=== PATIENT | male | born 1975 | race Caucasian/White ===

== ENCOUNTER 2017-06-16 19:10 | Emergency (ER) | payer SELFPAY ==
--- NOTE | 2017-06-16 19:19 | ED.ADGEN ---
Past History Past Medical History: Cancer, Gallstones Past Surgical History: Cholecystectomy, Other Adult General Chief Complaint Chief Complaint " I still got really bad abdomen pain... I got admitted at [facility] saturday for gall bladder.. and the did surgery... but they discharged me today... I told I was too sick to go...now I am really hurting... and I also go renal cancer... and Rt. right kidney is to get removed too..." " I am nauseated .. my entire abd. hurts..." HPI HPI Patient is a 42 year old male who presents with above hx and complaints of generalized abdomen pain after cholecystectomy. Pt. discharged from [facility] earlier today. Pt. does not remember his physician name. Records show a ED physician was Dr. Schmitz, and Primary Dr. Margarita Nunes and Dr. Garland Esposito- oncology, and Surgeon Dr. Margarita Willingham. Pt. had cholecystectomy for biliary colic and gall bladder polyp. Pt. somewhat poor historian reference is admission and surgery at [facility]. Pt. complaints of unable to take pain meds because of nausea and vomiting. Pt. rates his pain as 10/10. Pt. brother Paul Andujar present, can call if any concerns. [phone]. Review of Systems Review of Systems Constitutional: Denies fever or chills [] Eyes: Denies change in visual acuity, redness, or eye pain [] HENT: Denies nasal congestion or sore throat [] Respiratory: Denies cough or shortness of breath [] Cardiovascular: No additional information not addressed in HPI [] GI: Denies abdominal pain, nausea, vomiting, bloody stools or diarrhea [] : Denies dysuria or hematuria [] Musculoskeletal: Denies back pain or joint pain [] Integument: Denies rash or skin lesions [] Neurologic: Denies headache, focal weakness or sensory changes [] Endocrine: Denies polyuria or polydipsia [] All other systems were reviewed and found to be within normal limits, except as documented in this note. Family History Family History Non-contributory Current Medications Current Medications Current Medications Medications (Trade) Dose Ordered Sig/Mignon Start Time Stop Time Status Last Admin Dose Admin Ceftriaxone Sodium 1 gm/ Sodium Chloride 50 ml @ 100 mls/hr 1X ONCE 06/16/17 22:00 06/16/17 22:29 DC 06/16/17 22:13 100 MLS/HR Famotidine (Pepcid Vial) 20 mg 1X ONCE 06/16/17 19:30 06/16/17 19:37 DC 06/16/17 19:30 20 MG Info (Do NOT chart on this entry -- for MONITORING) 1 each PRN DAILY PRN 06/16/17 20:00 06/17/17 02:00 DC Iohexol (Omnipaque 240 Mg/ml) 30 ml 1X ONCE 06/16/17 19:45 06/16/17 19:51 DC 06/16/17 21:56 30 ML Iohexol (Omnipaque 300 Mg/ml) 75 ml 1X ONCE 06/16/17 19:45 06/16/17 19:51 DC 06/16/17 21:56 75 ML Lactated Ringer's 1,000 ml @ 1,000 mls/hr Q1H 06/16/17 19:21 06/16/17 20:20 DC 06/16/17 19:21 1,000 MLS/HR Metronidazole 100 ml @ 100 mls/hr 1X ONCE 06/16/17 22:00 06/16/17 22:59 DC 06/16/17 22:17 100 MLS/HR Morphine Sulfate (Morphine 10mg Syringe) 10 mg 1X ONCE 06/17/17 00:00 06/17/17 00:04 DC 06/17/17 00:00 10 MG Ondansetron HCl (Zofran) 8 mg 1X ONCE 06/16/17 19:30 06/16/17 19:37 DC 06/16/17 19:30 8 MG Sodium Chloride 1,000 ml @ 1,000 mls/hr 1X ONCE 06/16/17 20:45 06/16/17 21:44 DC 06/16/17 20:45 1,000 MLS/HR Allergies Allergies Allergies Coded Allergies Type Severity Reaction Last Updated Verified No Known Drug Allergies 06/16/17 No Physical Exam Physical Exam Constitutional: Moderately acute distress, non-toxic appearance. [] HENT: Normocephalic, atraumatic, bilateral external ears normal, oropharynx moist, no oral exudates, nose normal. []Scalp lesions. Eyes: PERRLA, EOMI, conjunctiva normal, no discharge. [] Neck: Normal range of motion, no tenderness, supple, no stridor. [] Cardiovascular:Heart rate regular rhythm, no murmur [] Lungs & Thorax: Bilateral breath sounds equal at apexes with scattered wheezes on auscultation []Basilar crackles. Abdomen: Bowel sounds decrease, soft, generalize tenderness, no masses, no pulsatile masses. Distended. Suture lines stable. Skin: Warm, dry, no erythema, no rash. Poor turgor. Back: No tenderness, no CVA tenderness. [] Extremities: No tenderness, no cyanosis, no clubbing, ROM intact, no edema. [] Complaints numbness in lower legs. Neurologic: Alert and oriented X 3, No gross motor function deficits., Complaints of decrease sensory in feet, Psychologic: Affect Anxious, judgement normal, mood depressed. Current Patient Data Vital Signs Vital Signs Date Time Temp Pulse Resp B/P (MAP) Pulse Ox O2 Delivery O2 Flow Rate FiO2 06/17/17 00:00 98 06/16/17 21:14 98.5 71 20 Room Air Lab Results Laboratory Tests Test 06/16/17 19:15 06/16/17 21:50 06/16/17 23:30 White Blood Count 15.6 x10^3/uL (4.0-11.0) H Red Blood Count 5.04 x10^6/uL (4.30-5.70) Hemoglobin 14.5 g/dL (13.0-17.5) Hematocrit 42.9 % (39.0-53.0) Mean Corpuscular Volume 85 fL (79-100) Mean Corpuscular Hemoglobin 29 pg (25-35) Mean Corpuscular Hemoglobin Concent 34 g/dL (31-37) Red Cell Distribution Width 15.5 % (11.5-14.5) H Platelet Count 301 x10^3/uL (140-400) Neutrophils (%) (Auto) 84 % (31-73) H Lymphocytes (%) (Auto) 6 % (24-48) L Monocytes (%) (Auto) 10 % (0-9) H Eosinophils (%) (Auto) 0 % (0-3) Basophils (%) (Auto) 1 % (0-3) Neutrophils # (Auto) 13.0 x10^3uL (1.8-7.7) H Lymphocytes # (Auto) 1.0 x10^3/uL (1.0-4.8) Monocytes # (Auto) 1.5 x10^3/uL (0.0-1.1) H Eosinophils # (Auto) 0.0 x10^3/uL (0.0-0.7) Basophils # (Auto) 0.1 x10^3/uL (0.0-0.2) Segmented Neutrophils % 87 % (35-66) H Lymphocytes % 6 % (24-48) L Monocytes % 7 % (0-10) Platelet Estimate Adequate (ADEQUATE) Polychromasia Slight Ovalocytes Occ Schistocytes Occ Prothrombin Time 11.3 SEC (9.4-11.4) Prothrombin Time INR 1.1 (0.9-1.1) PTT 27 SEC (23-33) Sodium Level 137 mmol/L (136-145) Potassium Level 3.5 mmol/L (3.5-5.1) Chloride Level 99 mmol/L (98-107) Carbon Dioxide Level 29 mmol/L (21-32) Anion Gap 9 (6-14) Blood Urea Nitrogen 8 mg/dL (8-26) Creatinine 0.9 mg/dL (0.7-1.3) Estimated GFR (Cockcroft-Gault) 92.1 Glucose Level 117 mg/dL (70-99) H Lactic Acid Level 2.2 mmol/L (0.4-2.0) H 1.2 mmol/L (0.4-2.0) Calcium Level 9.1 mg/dL (8.5-10.1) Total Bilirubin 4.1 mg/dL (0.2-1.0) H Direct Bilirubin 2.2 mg/dL (0.0-0.2) H Aspartate Amino Transferase (AST) 155 U/L (15-37) H Alanine Aminotransferase (ALT) 220 U/L (16-63) H Alkaline Phosphatase 70 U/L (46-116) Creatine Kinase 140 U/L (39-308) Creatine Kinase MB (Mass) 0.8 ng/mL (0.0-3.6) Creatine Kinase MB Relative Index 0.6 % (0-4) Troponin I Quantitative < 0.017 ng/mL (0-0.055) Total Protein 8.0 g/dL (6.4-8.2) Albumin 3.7 g/dL (3.4-5.0) Lipase 70 U/L (73-393) L Influenza Type A (Rapid) Negative (NEGATIVE) Influenza Type B (Rapid) Negative (NEGATIVE) Urine Collection Type Unknown Urine Color Val Urine Clarity Clear Urine pH 6.0 Urine Specific [place] 1.010 Urine Protein 100 mg/dl (NEG-TRACE) Urine Glucose (UA) Neg mg/dL (NEG) Urine Ketones (Stick) 80 mg/dL (NEG) Urine Blood Small (NEG) Urine Nitrite Neg (NEG) Urine Bilirubin Small (NEG) Urine Urobilinogen Dipstick 0.2 mg/dL (0.2 mg/dL) Urine Leukocyte Esterase Neg (NEG) Urine RBC 3-5 /HPF (0-2) Urine WBC Occ /HPF (0-4) Urine Squamous Epithelial Cells Occ /LPF Urine Bacteria Few /HPF (0-FEW) Urine Mucus Slight /LPF Urine Opiates Screen Pos (NEG) Urine Methadone Screen Neg (NEG) Urine Barbiturates Neg (NEG) Urine Phencyclidine Screen Neg (NEG) Urine Amphetamine/Methamphetamine Neg (NEG) Urine Benzodiazepines Screen Neg (NEG) Urine Cocaine Screen Neg (NEG) Urine Cannabinoids Screen Pos (NEG) Urine Ethyl Alcohol Neg (NEG) EKG EKG My interpretation of EKG shows as sinus 72, with no findings of Acute STEMI with contralateral changes. [] Radiology/Procedures Radiology/Procedures My interpretation of acute abd. show bilateral atelectasis, borderline cardiac silhouette. Increased bowel gas. [] CT findings show mild mesenteric adenitis. Small amount of free fluid. Right renal mass. See formal report when available Course & Med Decision Making Course & Med Decision Making Pertinent Labs and Imaging studies reviewed. (See chart for details) Discussed presentation, testing and tx. plan with Dr. Carranza- registration coordinator for Dr. Willingham. Pt. to return to [facility], admit to Hospitalist with Dr. Willingham consult. Discussed transfer with Dr. Bell in ED, to have pt go directly to floor - Transfer [phone]. [] Final Impression Final Impression 1. History of cholecystectomy for biliary colic and polyp.- 06/14/17 2. Generalized abdomen pain 3. History - 1.7 cm mass- suspect renal carcinoma 4. Scalp lesions 5. COPD 6. Peripheral Neuropathy 7. Cervical neuropathy- C4-5- Hx of old fx. 8. Chronic Back Pain 9. Tobacco Abuse 10. Nausea and Vomiting 11. Mesenteric Adenitis 12. Elevated AST/ALT 13. Leukocytosis 14. Elevated Lactic Acid Problems: Dragon Disclaimer Dragon Disclaimer This electronic medical record was generated, in whole or in part, using a voice recognition dictation system. KHUSHI BOGGS MD Jun 16, 2017 19:19
[2017-06-16] MEDS ORDERED: IV RINGERS SOLUTION,LACTATED 1,000 ML IV SCH (19:21)
[2017-06-16] MEDS ORDERED: MORPHINE SULFATE 10 MG/ML SYRINGE. SQ ONE (19:30)
[2017-06-16] MEDS ORDERED: FAMOTIDINE 20 MG/2 ML VIAL IVP ONE (19:30)
[2017-06-16] MEDS ORDERED: ONDANSETRON PF 4 MG/2 ML VIAL. IV ONE (19:30)
--- NOTE | 2017-06-16 19:39 | EKG ---
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
[2017-06-16] MEDS ORDERED: IOHEXOL 300 MG/ML 75 ML VIAL. IV ONE (19:45)
[2017-06-16] MEDS ORDERED: IOHEXOL 240 MG/ML 50ML VIAL. PO ONE (19:45)
[2017-06-16 19:53] LABS: BASO # 0.1 x10^3/uL (0.0-0.2); BASO % 1 % (0-3); EOS % 0 % (0-3); HEMOGLOBIN 14.5 g/dL (13.0-17.5); LYMPH % 6 % (24-48); MEAN CORPUSCULAR HEMOGLOBIN 29 pg (25-35); MEAN CORPUSCULAR HGB CONC 34 g/dL (31-37); MEAN CORPUSCULAR VOLUME 85 fL (79-100); MONO # 1.5 x10^3/uL (0.0-1.1); NEUT % 84 % (31-73); RED BLOOD COUNT 5.04 x10^6/uL (4.30-5.70)
[2017-06-16 19:54] LABS: HEMATOCRIT 42.9 % (39.0-53.0); WHITE BLOOD COUNT 15.6 x10^3/uL (4.0-11.0)
[2017-06-16 19:55] LABS: MONO % 10 % (0-9); PLATELET COUNT 301 x10^3/uL (140-400); RED CELL DISTRIBUTION WIDTH 15.5 % (11.5-14.5)
[2017-06-16] MEDS ORDERED: CONTRAST GIVEN MC PRN (20:00)
[2017-06-16 20:11] LABS: INFLUENZA A PATIENT NEGATIVE (NEGATIVE); INFLUENZA B PATIENT NEGATIVE (NEGATIVE)
[2017-06-16 20:13] LABS: ALBUMIN 3.7 g/dL (3.4-5.0); CALCIUM 9.1 mg/dL (8.5-10.1); CREATININE 0.9 mg/dL (0.7-1.3); DIRECT BILIRUBIN 2.2 mg/dL (0.0-0.2); GFR 92.1; POTASSIUM 3.5 mmol/L (3.5-5.1); TOTAL BILIRUBIN 4.1 mg/dL (0.2-1.0)
[2017-06-16] MEDS ORDERED: IV NORMAL SALINE 1,000ML 1,000 ML IV ONE (20:45)
[2017-06-16] MEDS ORDERED: IV NORMAL SALINE 50ML 50 ML ONE (22:01)
[2017-06-16] MEDS ORDERED: cefTRIAXone SODIUM 1 GM VIAL IV ONE (22:01)
[2017-06-16 22:02] LABS: % LYMPHS 6 % (24-48); % MONOS 7 % (0-10); % SEGS 87 % (35-66); OVALOCYTES OCC; PLT ESTIMATE ADEQUATE (ADEQUATE); POLYCHROMASIA SLIGHT; SCHISTOCYTES OCC
--- NOTE | 2017-06-16 22:24 | RAD ---
CT ABD PELV W/ORAL IV CONTRAST Indication: [id number] Omni 300 75cc: Post-op cholecystectomy 06/14/17, severe abdomen pain with nausea today. Patient states a CT A/P was done last week at [facility], he was told he had a cancerous lesion on his right kidney. No priors here. . Comparison: No comparison is available. Contrast: Intravenous and oral contrast. Exposure: One or more of the following individualized dose reduction techniques were utilized for this examination: 1. Automated exposure control 2. Adjustment of the mA and/or kV according to patient size 3. Use of iterative reconstruction technique. Findings: Mild atelectasis or infiltrate in both lung bases. Small pleural effusions. No evidence of pneumoperitoneum. Liver and spleen unremarkable. Pancreas unremarkable. No adrenal mass. There is a heterogeneous mass in the anterior right kidney measuring about 15 mm in diameter. Kidneys demonstrate symmetric function. Gallbladder surgically absent. No aortic aneurysm. There are several mildly enlarged mesenteric lymph nodes, measuring up to 14 mm. Smaller retroperitoneal lymph nodes are seen. No evidence of bowel obstruction. No evidence of acute colitis. A structure which may represent a nondistended appendix is seen. There is mild free fluid in the pelvis and in the right lower quadrant. There is also mild perihepatic ascites. Urinary bladder is distended. IMPRESSION: 1. Mass within the right kidney, measures about 15 mm diameter. This could be benign or malignant. If not already worked up, this can be done with outpatient MRI or multiphase CT scan. 2. Mildly enlarged mesenteric lymph nodes, uncertain significance but could be reactive. 3. Mild ascites in the right lower quadrant, pelvis and right upper quadrant of uncertain etiology. 4. Mild infiltrate or atelectasis in both lung bases. Electronically signed by: Mitchell Xie MD (06/16/2017 10:21 PM) [facility]
[2017-06-16 23:19] LABS: BARBITURATES NEG (NEG); BENZODIAZEPINES NEG (NEG); CANNABINOIDS POS (NEG); COCAINE NEG (NEG); METHADONE NEG (NEG); OPIATES POS (NEG); PHENCYCLIDINE NEG (NEG)
[2017-06-16 23:21] LABS: BACTERIA,URINE FEW /HPF (0-FEW); BILIRUBIN,URINE SMALL (NEG); CLARITY,URINE CLEAR; COLOR,URINE AMBER; GLUCOSE,URINE NEG (NEG); NITRITE,URINE NEG (NEG); SQUAMOUS EPITHELIAL CELL,UR OCC /LPF; UROBILINOGEN,URINE 0.2 mg/dL (0.2 mg/dL); WBC,URINE OCC /HPF (0-4)
[2017-06-16 23:22] LABS: AMPHETAMINE/METHAMPHETAMINE NEG (NEG)
[2017-06-16] MEDS ORDERED: MORPHINE SULFATE 10 MG/ML SYRINGE. ONE (23:55)
[2017-06-17] MEDS ORDERED: MORPHINE SULFATE 10 MG/ML SYRINGE. SQ ONE
[2017-06-17 01:15] VITALS: BP 173/91
--- NOTE | 2017-06-17 07:59 | RAD ---
Acute abdominal series including frontal chest radiograph and 2 views of the abdomen 06/16/2017 Indication: Postoperative. Right-sided abdominal pain. Comparison study: None Discussion: Low lung volumes are noted which augments the cardiomediastinal silhouette and pulmonary vasculature. There is bibasilar atelectasis. There is a probable small left pleural effusion. No pneumothorax is seen. Heart size is normal. Bony thorax is unremarkable. No gross pneumoperitoneum is identified. Minimal gaseous distention of small and large bowel is identified. The overall bowel gas pattern is felt to be nonobstructive. Adynamic ileus could have this appearance. Surgical clips noted in the right upper quadrant. No acute osseous changes are identified. Impression: 1. Mild distention of large and small bowel possibly representing adynamic ileus. Overall bowel gas is nonobstructive 2. Low lung volumes with bibasilar atelectasis and possible trace left pleural effusion
== END 2017-06-17 02:00 | disposition home or self-care (01) ==
LOC: ER 19:10
DX: R10.84 Generalized abdominal pain (principal); L98.8 Other specified disorders of the skin and subcutaneous tissue; J44.9 Chronic obstructive pulmonary disease, unspecified; G62.9 Polyneuropathy, unspecified; G54.2 Cervical root disorders, not elsewhere classified; G89.29 Other chronic pain; I88.0 Nonspecific mesenteric lymphadenitis; R74.0 Nonspecific elevation of levels of transaminase and lactic acid dehydrogenase [LDH]; R74.8 Abnormal levels of other serum enzymes; D72.829 Elevated white blood cell count, unspecified; Z72.0 Tobacco use; Z90.49 Acquired absence of other specified parts of digestive tract
CPT/HCPCS: 36415; 74022; 74177; 80048; 80076; 80307; 81001; 82553; 83605; 83690; 84484; 85007; 85025; 85610; 85730; 87040; 87804; 93005; 96361; 96365; 96366; 96368; 96372; 96375; 99285; J0696; J2270; J2405; J3490; J7120; Q9966; Q9967; S0028; G0479; J7030

== ENCOUNTER 2019-06-01 16:33 | Emergency (ER) | payer SELFPAY ==
[~2019-06-01] VITALS: Ht 170.2 cm; Wt 86.7 kg
--- NOTE | 2019-06-01 16:59 | PHYS DOC ---
Past History Past Medical History: Cancer, Gallstones Past Surgical History: Cholecystectomy, Other Alcohol Use: Occasionally Drug Use: None Adult General Chief Complaint Chief Complaint: MULTIPLE COMPLAINTS HPI HPI 44-year-old male presents with fatigue, dizziness, nausea for the last 4 days. Patient also had diffuse body cramping. He has not measured a fever. He has had some chills. He's had a few episodes of vomiting and diarrhea. This history is significant for renal cancer with no treatment and chronic blood in his stool for the last 2 years. He comes in today because he felt like his vision was more narrow and the fatigue is worse than yesterday. He decided he should get checked out. He has had decreased appetite. He has not had much to eat or drink. He states he may have blood in his urine. He has had decreased urination. Review of Systems Review of Systems Constitutional: Body aches. Chills[] Eyes: Denies change in visual acuity, redness, or eye pain [] HENT: Denies nasal congestion or sore throat [] Respiratory: Denies cough or shortness of breath [] Cardiovascular: No additional information not addressed in HPI [] GI: nausea, vomiting, blood in stool. Denies abdominal pain. [] : hematuria [] Musculoskeletal: Denies back pain or joint pain [] Integument: Denies rash or skin lesions [] Neurologic: Denies headache, focal weakness or sensory changes [] Endocrine: Denies polyuria or polydipsia [] All other systems were reviewed and found to be within normal limits, except as documented in this note. Current Medications Current Medications Current Medications Medications (Trade) Dose Ordered Sig/[facility] Start Time Stop Time Status Last Admin Dose Admin Ondansetron HCl (Zofran) 4 mg 1X ONCE 06/01/19 17:00 06/01/19 17:01 Sodium Chloride 1,000 ml @ 1,000 mls/hr 1X ONCE 06/01/19 17:00 06/01/19 17:59 Allergies Allergies Allergies Coded Allergies Type Severity Reaction Last Updated Verified No Known Drug Allergies 06/16/17 No Physical Exam Physical Exam Constitutional: Well developed, well nourished, no acute distress, non-toxic appearance. [] HENT: Poor dentition. Normocephalic, atraumatic, bilateral external ears normal, oropharynx moist, no oral exudates, nose normal. [] Eyes: PERRLA, EOMI, conjunctiva normal, no discharge. [] Neck: Normal range of motion, no tenderness, supple, no stridor. [] Cardiovascular: Heart rate regular rhythm, no murmur [] Lungs & Thorax: Bilateral breath sounds clear to auscultation [] Abdomen: Bowel sounds normal, soft, no tenderness, no masses, no pulsatile masses. [] Skin: Warm, dry, no erythema, no rash. [] Back: No tenderness, no CVA tenderness. [] Extremities: No tenderness, no cyanosis, no clubbing, ROM intact, no edema. [] Neurologic: Alert and oriented X 3, normal motor function, normal sensory function, no focal deficits noted. [] Psychologic: Affect normal, judgement normal, mood normal. [] Current Patient Data Vital Signs Vital Signs Date Time Temp Pulse Resp B/P (MAP) Pulse Ox O2 Delivery O2 Flow Rate FiO2 06/01/19 16:49 98.0 81 18 166/109 (128) 96 Room Air EKG EKG Sinus rhythm, rate 78, normal axis, no ST elevation or depression.[] Radiology/Procedures Radiology/Procedures [] Impressions: CHEST PA LATERAL History: Weakness, chest pain Comparison: June 16, 2017 Findings: 2 views of the chest are submitted. There is no infiltrate, pneumothorax, or effusion. Pericardial cardiac silhouette is within normal limits in size. Impression: 1. There is no radiographic evidence of acute cardiopulmonary disease. Electronically signed by: Lynn Casarez MD (06/01/2019 5:39 PM) [id number] DICTATED AND SIGNED BY: LYNN CASAREZ MD DATE: 06/01/19 1739 CC: EDILMA WOODWARD DO; PCP,NO ~ Course & Med Decision Making Course & Med Decision Making Pertinent Labs and Imaging studies reviewed. (See chart for details) Patient's labs are unremarkable. His chest x-ray is unremarkable. His EKG is unremarkable. His urinalysis is pending. Thus far, the most likely cause of the patient's symptoms seem to be viral illness. Urinalysis is unremarkable. I have advised supportive care. Stable for discharge at this time. [] Dragon Disclaimer Dragon Disclaimer This electronic medical record was generated, in whole or in part, using a voice recognition dictation system. Departure Departure: Impression: Primary Impression: Viral syndrome Disposition: HOME, SELF-CARE Condition: STABLE Referrals: PCP,NO (PCP) Patient Instructions: Viral Syndrome EDILMA WOODWARD DO Jun 01, 2019 16:58
[2019-06-01] MEDS ORDERED: ONDANSETRON PF 4 MG/2 ML VIAL. IVP ONE (17:00)
[2019-06-01] MEDS ORDERED: IV NORMAL SALINE 1,000ML 1,000 ML IV ONE (17:00)
[2019-06-01 17:19] LABS: BASO % 0 % (0-3); EOS # 0.5 x10^3/uL (0.0-0.7); EOS % 5 % (0-3); HEMATOCRIT 47.5 % (39.0-53.0); HEMOGLOBIN 15.8 g/dL (13.0-17.5); LYMPH # 1.9 x10^3/uL (1.0-4.8); LYMPH % 21 % (24-48); MEAN CORPUSCULAR HEMOGLOBIN 29 pg (25-35); MEAN CORPUSCULAR HGB CONC 33 g/dL (31-37); MEAN CORPUSCULAR VOLUME 87 fL (79-100); MONO # 0.8 x10^3/uL (0.0-1.1); MONO % 9 % (0-9); NEUT # 6.1 x10^3uL (1.8-7.7); NEUT % 65 % (31-73); PLATELET COUNT 398 x10^3/uL (140-400); RED BLOOD COUNT 5.46 x10^6/uL (4.30-5.70); RED CELL DISTRIBUTION WIDTH 14.4 % (11.5-14.5); WHITE BLOOD COUNT 9.4 x10^3/uL (4.0-11.0)
[2019-06-01 17:28] LABS: CALCIUM 8.5 mg/dL (8.5-10.1); CREATININE 0.8 mg/dL (0.7-1.3); GFR 104.5; POTASSIUM 4.1 mmol/L (3.5-5.1)
[2019-06-01 17:31] LABS: ALBUMIN 3.6 g/dL (3.4-5.0); ALBUMIN/GLOBULIN RATIO 1.2 (1.0-1.7); TOTAL BILIRUBIN 0.5 mg/dL (0.2-1.0); TOTAL PROTEIN 6.7 g/dL (6.4-8.2)
[2019-06-01 17:34] LABS: INFLUENZA A PATIENT NEGATIVE (NEGATIVE); INFLUENZA B PATIENT NEGATIVE (NEGATIVE)
--- NOTE | 2019-06-01 17:41 | RAD ---
CHEST PA LATERAL History: Weakness, chest pain Comparison: June 16, 2017 Findings: 2 views of the chest are submitted. There is no infiltrate, pneumothorax, or effusion. Pericardial cardiac silhouette is within normal limits in size. Impression: 1. There is no radiographic evidence of acute cardiopulmonary disease. Electronically signed by: Malik Randall MD (06/01/2019 5:39 PM) [id number]
--- NOTE | 2019-06-01 18:00 | EKG ---
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
[2019-06-01 18:36] LABS: BACTERIA,URINE 0 /HPF (0-FEW); BILIRUBIN,URINE NEG (NEG); CLARITY,URINE CLEAR; COLOR,URINE YELLOW; GLUCOSE,URINE NEG (NEG); NITRITE,URINE NEG (NEG); RBC,URINE 0 /HPF (0-2); SQUAMOUS EPITHELIAL CELL,UR OCC /LPF; UROBILINOGEN,URINE 0.2 mg/dL (0.2 mg/dL); WBC,URINE OCC /HPF (0-4)
[2019-06-01 18:51] VITALS: BP 161/67
== END 2019-06-01 18:50 | disposition home or self-care (01) ==
LOC: ER 16:33
DX: B34.9 Viral infection, unspecified (principal); R42 Dizziness and giddiness; R31.9 Hematuria, unspecified
CPT/HCPCS: 36415; 71046; 80053; 81001; 84484; 85025; 87804; 93005; 96361; 96374; 96375; 99285; J2060; J2405; J7030

== ENCOUNTER 2019-08-28 09:24 | Emergency (ER) | payer SELFPAY ==
[~2019-08-28] VITALS: Ht 170.2 cm; Wt 86.7 kg
[2019-08-28] MEDS ORDERED: IV NORMAL SALINE 1,000ML 1,000 ML IV ONE (09:30)
--- NOTE | 2019-08-28 09:34 | EKG ---
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
[2019-08-28] MEDS ORDERED: ONDANSETRON PF 4 MG/2 ML VIAL. IVP ONE (09:45)
[2019-08-28 09:52] LABS: BASO # 0.1 x10^3/uL (0.0-0.2); BASO % 1 % (0-3); EOS # 0.4 x10^3/uL (0.0-0.7); EOS % 5 % (0-3); HEMATOCRIT 45.2 % (39.0-53.0); HEMOGLOBIN 15.2 g/dL (13.0-17.5); LYMPH # 1.8 x10^3/uL (1.0-4.8); LYMPH % 23 % (24-48); MEAN CORPUSCULAR HEMOGLOBIN 29 pg (25-35); MEAN CORPUSCULAR HGB CONC 34 g/dL (31-37); MEAN CORPUSCULAR VOLUME 88 fL (79-100); MONO # 0.7 x10^3/uL (0.0-1.1); MONO % 9 % (0-9); NEUT # 4.9 x10^3uL (1.8-7.7); NEUT % 62 % (31-73); PLATELET COUNT 365 x10^3/uL (140-400); RED BLOOD COUNT 5.17 x10^6/uL (4.30-5.70); RED CELL DISTRIBUTION WIDTH 14.1 % (11.5-14.5); WHITE BLOOD COUNT 7.9 x10^3/uL (4.0-11.0)
--- NOTE | 2019-08-28 09:52 | PHYS DOC ---
Past History Past Medical History: Cancer, Gallstones Past Surgical History: Cholecystectomy, Other Alcohol Use: Occasionally Drug Use: None General Adult EDM: Chief Complaint: CHEST PAIN HPI: HPI: 44-year-old male presents with chest pain. He says it is a sharp pain in the center of his chest. It started about 30 minutes prior to arrival. It has subsided a little bit and is now a 6 out of 10. Patient further states that he has been feeling generally ill and cramping the last 3 days or so. He has been sleeping a lot. He has had some vomiting and nausea, but the patient has daily nausea most days at baseline. He states that he has kidney cancer but is not getting treatment. He denies fever chills. He did ride his bike a few miles 3 days ago. Denies trauma or falls. He did go to a court hearing today and started to have the chest pain on his way home. Review of Systems: Review of Systems: Constitutional: Fatigue. Denies fever or chills Eyes: Denies change in visual acuity HENT: Denies nasal congestion or sore throat Respiratory: Denies cough or shortness of breath Cardiovascular: Chest pain GI: Denies abdominal pain, nausea, vomiting, bloody stools or diarrhea : Denies dysuria Musculoskeletal: Denies back pain or joint pain Integument: Denies rash Neurologic: Denies headache, focal weakness or sensory changes Endocrine: Denies polyuria or polydipsia Lymphatic: Denies swollen glands Psychiatric: Denies depression or anxiety Heart Score: HEART Score for Chest Pain: HEART Score for Chest Pain Response (Comments) Value History Slighlty/Non-Suspicious 0 ECG Normal 0 Age < 45 0 Risk Factors 1 or 2 Risk Factors 1 Troponin < Normal Limit 0 Total 1 Risk Factors: Risk Factors: DM, Current or recent (<one month) smoker, HTN, HLP, family history of CAD, obesity. Risk Scores: Score 0 - 3: 2.5% MACE over next 6 weeks - Discharge Home Score 4 - 6: 20.3% MACE over next 6 weeks - Admit for Clinical Observation Score 7 - 10: 72.7% MACE over next 6 weeks - Early Invasive Strategies Current Medications: Current Meds: Current Medications Medications (Trade) Dose Ordered Sig/Mignon Start Time Stop Time Status Last Admin Dose Admin Ondansetron HCl (Zofran) 4 mg 1X ONCE 08/28/19 09:45 08/28/19 09:46 DC Sodium Chloride 1,000 ml @ 1,000 mls/hr 1X ONCE 08/28/19 09:30 08/28/19 10:29 08/28/19 09:39 1,000 MLS/HR Allergies: Allergies: Allergies Coded Allergies Type Severity Reaction Last Updated Verified No Known Drug Allergies 06/16/17 No Physical Exam: PE: Constitutional: Well developed, well nourished, no acute distress, non-toxic appearance. [] HENT: Normocephalic, atraumatic, bilateral external ears normal, oropharynx moist, no oral exudates, nose normal. [] Eyes: PERRLA, EOMI, conjunctiva normal, no discharge. [] Neck: Normal range of motion, no tenderness, supple, no stridor. [] Cardiovascular: Heart rate 60, regular rhythm, no murmur [] Lungs & Thorax: Bilateral breath sounds clear to auscultation [] Abdomen: Bowel sounds normal, soft, no tenderness, no masses, no pulsatile masses. [] Skin: Warm, dry, no erythema, no rash. [] Back: No tenderness, no CVA tenderness. [] Extremities: No tenderness, no cyanosis, no clubbing, ROM intact, no edema. [] Neurologic: Alert and oriented X 3, normal motor function, normal sensory function, no focal deficits noted. [] Psychologic: Affect normal, judgement normal, mood anxious. [] Current Patient Data: Vital Signs: Vital Signs Date Time Temp Pulse Resp B/P (MAP) Pulse Ox O2 Delivery O2 Flow Rate FiO2 08/28/19 09:24 98.1 65 22 175/96 (122) 100 EKG: EKG: Sinus rhythm, rate 60, normal axis, no ST elevations or depressions. [] Radiology/Procedures: Radiology/Procedures: [] Impressions: CHEST AP ONLY History: CP Comparison: June 01, 2019 Findings: Low lung volumes. Patchy bibasilar opacities.. No consolidation. No pleural effusion. Normal heart size. Impression: 1. Low lung volumes with patchy bibasilar opacities, likely atelectasis. Electronically signed by: Daniel Bocanegra DO (08/28/2019 9:50 AM) [id number] DICTATED AND SIGNED BY: DANIEL BOCANEGRA DO DATE: 08/28/19 0950 CC: EDILMA WOODWARD DO; PCP,RADHA ~ Course & Med Decision Making: Course & Med Decision Making Pertinent Labs and Imaging studies reviewed. (See chart for details) Patient's EKG is unremarkable. His chest x-ray shows some atelectasis. The patient's labs are unremarkable. His troponin is negative. I do not see any life-threatening illnesses. He is stable for discharge at this time. [] Dragon Disclaimer: Dragnate Disclaimer: This electronic medical record was generated, in whole or in part, using a voice recognition dictation system. Departure Departure: Impression: Primary Impression: Chest pain Qualified Codes: R07.9 - Chest pain, unspecified Disposition: HOME/RESIDENCE PRIOR TO ADM Condition: STABLE Referrals: PCPRADHA (PCP) Patient Instructions: Chest Pain (Nonspecific), [id number] EDILMA WOODWARD DO August 28, 2019 09:52
[2019-08-28 09:59] LABS: CALCIUM 8.5 mg/dL (8.5-10.1); GFR 80.8
[2019-08-28 10:05] LABS: ALBUMIN 3.6 g/dL (3.4-5.0); ALBUMIN/GLOBULIN RATIO 1.2 (1.0-1.7); TOTAL BILIRUBIN 0.2 mg/dL (0.2-1.0); TOTAL PROTEIN 6.7 g/dL (6.4-8.2)
[2019-08-28 11:11] LABS: BILIRUBIN,URINE NEG (NEG); CLARITY,URINE CLEAR; COLOR,URINE YELLOW; GLUCOSE,URINE NEG (NEG); NITRITE,URINE NEG (NEG); RBC,URINE 0 /HPF (0-2); UROBILINOGEN,URINE 0.2 mg/dL (0.2 mg/dL)
[2019-08-28 11:12] LABS: BACTERIA,URINE 0 /HPF (0-FEW); HYALINE CASTS, URINE OCC /HPF; SQUAMOUS EPITHELIAL CELL,UR OCC /LPF; WBC,URINE OCC /HPF (0-4)
[2019-08-28 11:23] VITALS: BP 159/101
[2019-08-28] MEDS ORDERED: PANTOPRAZOLE IV 40 MG VIAL. IVP ONE (11:30)
[2019-08-28] MEDS ORDERED: FAMOTIDINE 20 MG/2 ML VIAL IVP ONE (11:35)
[2019-08-28 12:04] LABS: AMPHETAMINE/METHAMPHETAMINE POS (NEG); BARBITURATES NEG (NEG); BENZODIAZEPINES NEG (NEG); CANNABINOIDS POS (NEG); COCAINE NEG (NEG); METHADONE NEG (NEG); OPIATES NEG (NEG); PHENCYCLIDINE NEG (NEG)
== END 2019-08-28 11:40 | disposition home or self-care (01) ==
LOC: ER 09:24
DX: R07.89 Other chest pain (principal); R11.2 Nausea with vomiting, unspecified; R53.83 Other fatigue
CPT/HCPCS: 36415; 71045; 80053; 80307; 81001; 84484; 85025; 93005; 96361; 96374; 96375; 99285; C9113; J2405; J3490; J7030

== ENCOUNTER 2019-09-12 10:01 | Emergency (ER) | payer SELFPAY ==
[~2019-09-12] VITALS: Ht 170.2 cm; Wt 82.0 kg
--- NOTE | 2019-09-12 10:26 | EKG ---
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
[2019-09-12] MEDS ORDERED: ASPIRIN CHEWABLE 81 MG TABLET. PO ONE (10:30)
[2019-09-12] MEDS ORDERED: ONDANSETRON PF 4 MG/2 ML VIAL. IV ONE (10:30)
[2019-09-12 10:35] LABS: BASO # 0.1 x10^3/uL (0.0-0.2); BASO % 1 % (0-3); EOS # 0.6 x10^3/uL (0.0-0.7); EOS % 8 % (0-3); HEMOGLOBIN 15.2 g/dL (13.0-17.5); LYMPH # 1.5 x10^3/uL (1.0-4.8); LYMPH % 18 % (24-48); MEAN CORPUSCULAR HEMOGLOBIN 29 pg (25-35); MEAN CORPUSCULAR HGB CONC 34 g/dL (31-37); MEAN CORPUSCULAR VOLUME 87 fL (79-100); MONO # 0.4 x10^3/uL (0.0-1.1); MONO % 4 % (0-9); NEUT # 5.6 x10^3uL (1.8-7.7); NEUT % 69 % (31-73); PLATELET COUNT 365 x10^3/uL (140-400); RED BLOOD COUNT 5.17 x10^6/uL (4.30-5.70); WHITE BLOOD COUNT 8.1 x10^3/uL (4.0-11.0)
--- NOTE | 2019-09-12 11:01 | RAD ---
EXAM: CHEST AP ONLY INDICATION: Reason: chest pain / Spl. Instructions: / History: . TECHNIQUE: Single view COMPARISON: 08/28/2019 chest x-ray FINDINGS: The heart size is normal. The great vessels appear unremarkable. There is no hilar or mediastinal mass. The lungs are hypoventilatory but otherwise clear. There is no pleural effusion or pneumothorax. There are no significant osseous abnormalities. IMPRESSION: No active cardiopulmonary disease. Electronically signed by: Amparo Lake MD (09/12/2019 10:57 AM) [id number]
[2019-09-12 12:01] LABS: ALBUMIN 3.5 g/dL (3.4-5.0); CALCIUM 8.5 mg/dL (8.5-10.1); CREATININE 1.1 mg/dL (0.7-1.3); GFR 72.4; POTASSIUM 4.6 mmol/L (3.5-5.1); TOTAL BILIRUBIN 0.4 mg/dL (0.2-1.0); TOTAL PROTEIN 7.1 g/dL (6.4-8.2)
[2019-09-12] MEDS ORDERED: NAPR500T8 PO (12:09)
--- NOTE | 2019-09-12 12:10 | PHYS DOC ---
Past History Past Medical History: Cancer, Gallstones, Hypertension, Other Additional Past Medical Histor: Renal carcinoma Right Past Surgical History: Cholecystectomy, Other Additional Past Surgical Histo: Rita, Tumor head removed Additional Smoking Information: Cigars Alcohol Use: Occasionally Drug Use: None General Adult EDM: Chief Complaint: CHEST PAIN HPI: HPI: Patient is a 44-year-old male with multiple medical problems including renal carcinoma who presents with a variety of complaints today. He has had some sharp chest pain has had some neck and right arm pain. He states he feels like his right arm is swollen. He denies any injury to the area. He has had some shortness of breath but no dyspnea on exertion. In fact, he states when he is up and moving around he feels a little better. He denies any fever chills or sweats. He is not had any upper respiratory type symptoms such as a cough or congestion. [] Review of Systems: Review of Systems: Constitutional: Denies fever or chills Eyes: Denies change in visual acuity HENT: Denies nasal congestion or sore throat Respiratory: Denies cough or shortness of breath Cardiovascular: Denies chest pain or edema GI: Denies abdominal pain, nausea, vomiting, bloody stools or diarrhea : Denies dysuria Musculoskeletal: Denies back pain or joint pain Integument: Denies rash Neurologic: Denies headache, focal weakness or sensory changes Endocrine: Denies polyuria or polydipsia Lymphatic: Denies swollen glands Psychiatric: Denies depression or anxiety Heart Score: HEART Score for Chest Pain: HEART Score for Chest Pain Response (Comments) Value History Slighlty/Non-Suspicious 0 ECG Normal 0 Age < 45 0 Risk Factors 1 or 2 Risk Factors 1 Troponin < Normal Limit 0 Total 1 Risk Factors: Risk Factors: DM, Current or recent (<one month) smoker, HTN, HLP, family history of CAD, obesity. Risk Scores: Score 0 - 3: 2.5% MACE over next 6 weeks - Discharge Home Score 4 - 6: 20.3% MACE over next 6 weeks - Admit for Clinical Observation Score 7 - 10: 72.7% MACE over next 6 weeks - Early Invasive Strategies Current Medications: Current Meds: Current Medications Medications (Trade) Dose Ordered Sig/Mignon Start Time Stop Time Status Last Admin Dose Admin Aspirin (Aspirin Chewable) 324 mg 1X ONCE 09/12/19 10:30 09/12/19 10:32 DC 09/12/19 10:33 324 MG Fentanyl Citrate (Fentanyl 2ml Vial) 50 mcg 1X ONCE 09/12/19 10:30 09/12/19 10:32 DC 09/12/19 10:33 50 MCG Ondansetron HCl (Zofran) 4 mg 1X ONCE 09/12/19 10:30 09/12/19 10:32 DC 09/12/19 10:33 4 MG Allergies: Allergies: Allergies Coded Allergies Type Severity Reaction Last Updated Verified No Known Drug Allergies 06/16/17 No Physical Exam: PE: Constitutional: Well developed, well nourished, moderate distress, non-toxic appearance. [] HENT: Normocephalic, atraumatic, bilateral external ears normal, oropharynx moist, no oral exudates, nose normal. [] Eyes: PERRLA, EOMI, conjunctiva normal, no discharge. [] Neck: Normal range of motion, no tenderness, supple, no stridor. [] Cardiovascular:Heart rate regular rhythm, no murmur [] Lungs & Thorax: Bilateral breath sounds clear to auscultation [] Abdomen: Bowel sounds normal, soft, no tenderness, no masses, no pulsatile masses. [] Skin: Warm, dry, no erythema, no rash. [] Back: No tenderness, no CVA tenderness. [] Extremities: No tenderness, no cyanosis, no clubbing, ROM intact, no edema. [] Neurologic: Alert and oriented X 3, normal motor function, normal sensory function, no focal deficits noted. [] Psychologic: Extremely anxious. [] Current Patient Data: Labs: Laboratory Tests Test 09/12/19 10:16 09/12/19 11:13 White Blood Count 8.1 x10^3/uL (4.0-11.0) Red Blood Count 5.17 x10^6/uL (4.30-5.70) Hemoglobin 15.2 g/dL (13.0-17.5) Hematocrit 45.0 % (39.0-53.0) Mean Corpuscular Volume 87 fL (79-100) Mean Corpuscular Hemoglobin 29 pg (25-35) Mean Corpuscular Hemoglobin Concent 34 g/dL (31-37) Red Cell Distribution Width 14.0 % (11.5-14.5) Platelet Count 365 x10^3/uL (140-400) Neutrophils (%) (Auto) 69 % (31-73) Lymphocytes (%) (Auto) 18 % (24-48) L Monocytes (%) (Auto) 4 % (0-9) Eosinophils (%) (Auto) 8 % (0-3) H Basophils (%) (Auto) 1 % (0-3) Neutrophils # (Auto) 5.6 x10^3uL (1.8-7.7) Lymphocytes # (Auto) 1.5 x10^3/uL (1.0-4.8) Monocytes # (Auto) 0.4 x10^3/uL (0.0-1.1) Eosinophils # (Auto) 0.6 x10^3/uL (0.0-0.7) Basophils # (Auto) 0.1 x10^3/uL (0.0-0.2) D-Dimer (Norah) 0.40 mg/L (0.00-0.50) Sodium Level 141 mmol/L (136-145) Potassium Level 4.6 mmol/L (3.5-5.1) Chloride Level 106 mmol/L (98-107) Carbon Dioxide Level 27 mmol/L (21-32) Anion Gap 8 (6-14) Blood Urea Nitrogen 9 mg/dL (8-26) Creatinine 1.1 mg/dL (0.7-1.3) Estimated GFR (Cockcroft-Gault) 72.4 BUN/Creatinine Ratio 8 (6-20) Glucose Level 91 mg/dL (70-99) Calcium Level 8.5 mg/dL (8.5-10.1) Total Bilirubin 0.4 mg/dL (0.2-1.0) Aspartate Amino Transferase (AST) 34 U/L (15-37) Alanine Aminotransferase (ALT) 58 U/L (16-63) Alkaline Phosphatase 73 U/L (46-116) Troponin I Quantitative < 0.017 ng/mL (0-0.055) YA-Zqg-K-Type Natriuretic Peptide 22 pg/mL (0-124) Total Protein 7.1 g/dL (6.4-8.2) Albumin 3.5 g/dL (3.4-5.0) Albumin/Globulin Ratio 1.0 (1.0-1.7) Vital Signs: Vital Signs Date Time Temp Pulse Resp B/P (MAP) Pulse Ox O2 Delivery O2 Flow Rate FiO2 09/12/19 10:33 98 09/12/19 10:18 98.2 88 20 138/91 (107) Room Air EKG: EKG: EKG: Normal sinus rhythm rate of [address]-T changes [] Radiology/Procedures: Radiology/Procedures: []PROCEDURE: CHEST AP ONLY EXAM: CHEST AP ONLY INDICATION: Reason: chest pain / Spl. Instructions: / History: . TECHNIQUE: Single view COMPARISON: 08/28/2019 chest x-ray FINDINGS: The heart size is normal. The great vessels appear unremarkable. There is no hilar or mediastinal mass. The lungs are hypoventilatory but otherwise clear. There is no pleural effusion or pneumothorax. There are no significant osseous abnormalities. IMPRESSION: No active cardiopulmonary disease. Course & Med Decision Making: Course & Med Decision Making Pertinent Labs and Imaging studies reviewed. (See chart for details) [ED course: Evaluation reveals a 44-year-old male with some right arm and chest pain. Certainly his chest discomfort was atypical. I suspect much of his symptoms are related to anxiety. I did give him some IV fluids fentanyl and Zofran during his stay in the department which did help alleviate his symptoms. I reassured the patient that it did not appear that he had a blood clot or any cardiac damage ongoing. I have a encouraged him to follow-up with his primary care physician as an outpatient.] Radha Disclaimer: Radha Disclaimer: This electronic medical record was generated, in whole or in part, using a voice recognition dictation system. Departure Departure: Impression: Primary Impression: Cervical radiculopathy Additional Impression: Chest pain Qualified Codes: R07.81 - Pleurodynia Disposition: HOME/RESIDENCE PRIOR TO ADM Condition: STABLE Referrals: PCP,RADHA (PCP) Patient Instructions: Cervical Radiculopathy, Chest Pain (Nonspecific) Additional Instructions: Return to the emergency department with any new or concerning symptoms Scripts Naproxen (NAPROXEN) 500 Mg Tablet. 1 TAB PO Q12HR PRN for PAIN, #60 TAB 1 Refill Prov: LUIS F SUN DO 09/12/19 Justification of Admission: Justification of Admission: Justification of Admission Dx: No LUIS F SUN DO Sep 12, 2019 12:10
[2019-09-12 13:31] VITALS: BP 158/87
== END 2019-09-12 13:15 | disposition home or self-care (01) ==
LOC: ER 10:01
DX: M54.12 Radiculopathy, cervical region (principal); R07.81 Pleurodynia; I10 Essential (primary) hypertension; F17.210 Nicotine dependence, cigarettes, uncomplicated
CPT/HCPCS: 36415; 71045; 80053; 83880; 84484; 85025; 85379; 93005; 96374; 96375; 99285; J2405; J3010

== ENCOUNTER 2019-10-01 08:02 | Emergency (ER) | payer SELFPAY ==
[~2019-10-01] VITALS: Ht 167.6 cm; Wt 84.0 kg
[~2019-10-01 08:02] MED LIST: NAPR500T8 PO
[2019-10-01 08:08] VITALS: BP 158/105
--- NOTE | 2019-10-01 08:26 | PHYS DOC ---
Past History Past Medical History: Cancer, Gallstones, Hypertension, Other Additional Past Medical Histor: Renal carcinoma Right Past Surgical History: Cholecystectomy, Other Additional Past Surgical Histo: Rita, Tumor head removed Alcohol Use: Occasionally Drug Use: None General Adult EDM: Chief Complaint: UPPER EXTREMITY SWELLING HPI: HPI: Patient is a pleasant 44-year-old male who presents to the emergency department for evaluation. His main reason of coming to the emergency department is some swelling and discomfort in his right hand. He states this has been waxing and waning over the past 2 weeks or so. He was seen in [place] about 10 days ago and diagnosed with neuropathy. He states the swelling did go down and began increasing yesterday after he took a bike ride through the [place]. He did notice several insect bites on the skin of his hand and distal forearm this morning. He has not had any fevers or chills. The patient also states that after arriving in the emergency department, he did develop some right lower quadrant abdominal discomfort. He has not had any nausea or vomiting. The patient is somewhat sweaty but states he did ride his bike to the emergency department. There are no alleviating or exacerbating factors to his symptoms although palpation of his hand and arm worsens his pain. Review of Systems: Review of Systems: Constitutional: Denies fever or chills Eyes: Denies change in visual acuity HENT: Denies nasal congestion or sore throat Respiratory: Denies cough or shortness of breath Cardiovascular: Denies chest pain or edema GI: Denies nausea, vomiting, bloody stools or diarrhea : Denies dysuria Musculoskeletal: Denies back pain or joint pain Integument: Denies rash, other than as noted in the HPI. Neurologic: Denies headache, focal weakness or sensory changes Endocrine: Denies polyuria or polydipsia Lymphatic: Denies swollen glands Psychiatric: Denies depression or anxiety Heart Score: Risk Factors: Risk Factors: DM, Current or recent (<one month) smoker, HTN, HLP, family history of CAD, obesity. Risk Scores: Score 0 - 3: 2.5% MACE over next 6 weeks - Discharge Home Score 4 - 6: 20.3% MACE over next 6 weeks - Admit for Clinical Observation Score 7 - 10: 72.7% MACE over next 6 weeks - Early Invasive Strategies Allergies: Allergies: Allergies Coded Allergies Type Severity Reaction Last Updated Verified No Known Drug Allergies 06/16/17 No Physical Exam: PE: PHYSICAL EXAM: CONSTITUTIONAL: Well developed, well nourished HEAD: normocephalic, atraumatic EENT: PERRL, EOMI. Conjunctivae normal color, sclerae non-icteric; moist mucous membranes. NECK: Supple, non-tender; no meningismus. LUNGS: Lungs CTA, breathing even and unlabored. Normal air movement. HEART: Regular rate and rhythm, no murmur CHEST: No deformity; non-tender ABDOMEN: The abdomen is soft, there is mild right lower quadrant tenderness to palpation without rebound or guarding, remainder the abdomen is soft and non- tender, no masses or bruits. EXTREM: There is some soft tissue swelling diffusely noted to the right hand and distal forearm, mild, some mild warmth and erythema, with several scattered insect bites, range of motion of the digits is normal, distal PMS is normal, remainder the extremities are unremarkable, with normal ROM; no deformity, no calf tenderness. Normal pulses palpable in all extremities. There is no pedal edema. SKIN: No rash; no diaphoresis NEURO: Alert; normal speech and cognition; CN's grossly intact; strength grossly intact without focal deficit. BACK: No CVA TTP. Current Patient Data: Labs: Laboratory Tests Test 10/01/19 08:30 White Blood Count 11.8 x10^3/uL Red Blood Count 5.19 x10^6/uL Hemoglobin 15.0 g/dL Hematocrit 44.8 % Mean Corpuscular Volume 86 fL Mean Corpuscular Hemoglobin 29 pg Mean Corpuscular Hemoglobin Concent 33 g/dL Red Cell Distribution Width 14.1 % Platelet Count 377 x10^3/uL Neutrophils (%) (Auto) 72 % Lymphocytes (%) (Auto) 15 % Monocytes (%) (Auto) 11 % Eosinophils (%) (Auto) 2 % Basophils (%) (Auto) 1 % Neutrophils # (Auto) 8.5 x10^3uL Lymphocytes # (Auto) 1.7 x10^3/uL Monocytes # (Auto) 1.3 x10^3/uL Eosinophils # (Auto) 0.2 x10^3/uL Basophils # (Auto) 0.1 x10^3/uL Sodium Level 137 mmol/L Potassium Level 3.5 mmol/L Chloride Level 99 mmol/L Carbon Dioxide Level 30 mmol/L Anion Gap 8 Blood Urea Nitrogen 11 mg/dL Creatinine 1.2 mg/dL Estimated GFR (Cockcroft-Gault) 65.5 BUN/Creatinine Ratio 9 Glucose Level 104 mg/dL Calcium Level 8.7 mg/dL Total Bilirubin 0.7 mg/dL Aspartate Amino Transf (AST/SGOT) 30 U/L Alanine Aminotransferase (ALT/SGPT) 66 U/L Alkaline Phosphatase 74 U/L C-Reactive Protein 11.9 mg/L Total Protein 8.0 g/dL Albumin 4.1 g/dL Albumin/Globulin Ratio 1.1 Lipase 105 U/L Current Medications Medications (Trade) Dose Ordered Sig/Mignon Route PRN Reason Start Time Stop Time Status Last Admin Dose Admin Iohexol (Omnipaque 300 Mg/ml) 75 ml 1X ONCE IV 10/01/19 08:30 10/01/19 08:31 DC 10/01/19 08:42 EKG: EKG: [] Radiology/Procedures: Radiology/Procedures: PROCEDURE: CT ABD PELV W/ IV CONTRST ONLY PQRS Compliance Statement: One or more of the following individualized dose reduction techniques were utilized for this examination: 1. Automated exposure control 2. Adjustment of the mA and/or kV according to patient size 3. Use of iterative reconstruction technique CT abdomen/pelvis with contrast 10/01/2019 8:20 AM INDICATION: Right lower quadrant abdominal pain COMPARISON: CT abdomen/pelvis 06/16/2017 TECHNIQUE: Multiple axial CT images of the abdomen and pelvis were obtained after the intravenous administration of nonionic contrast. Coronal and sagittal reformats are provided. FINDINGS: Lung bases are clear. Heart size is within normal limits. Mild hypoattenuation of the hepatic parenchyma suggestive of hepatic steatosis. There is an 8 mm hypervascular area within segment VIII (series 2, image 15) which may represent a vascular shunt or flash fill hemangioma in the absence of underlying malignancy. Spleen, bilateral adrenal glands and pancreas are normal in appearance. Gallbladder surgically absent. Abdominal aorta is normal in course and caliber. There are no pathologically enlarged lymph nodes in the abdomen and pelvis. No free fluid or free intraperitoneal air. Small and large bowel are normal in caliber. There is no evidence for bowel obstruction. There are no pericolonic inflammatory changes. A normal, nondilated appendix is visualized without adjacent inflammatory changes. The kidneys enhance symmetrically. There is no suspicious renal mass. There is no hydronephrosis. There are no suspected calculi within the kidneys, ureters or urinary bladder. Urinary bladder is within normal limits given degree of distention. Prostate and seminal vesicles appear normal. No suspicious osseous abnormality is identified. IMPRESSION: 1. No acute abnormality is identified in abdomen and pelvis. Specifically, appendix is normal in appearance. 2. There is a 8 mm hypervascular lesion in segment VIII of the right hepatic lobe. Primary consideration may be given for vascular shunt versus flash fill hemangioma in the absence of underlying malignancy. If there is persistent clinical concern, a nonemergent MRI abdomen with and without contrast could be of benefit.[] Course & Med Decision Making: Course & Med Decision Making Pertinent Labs and Imaging studies reviewed. (See chart for details) [] Patient remains stable. I discussed test results, the need for close follow- up, and return precautions. I specifically discussed the importance of close follow-up for the CT findings in the liver, especially given the patient's history of renal cancer. This is to ensure that this is not a malignancy. I discussed importance of close outpatient follow-up with her PCP for further evaluation of his right upper extremity discomfort. Differential diagnosis currently includes infectious versus inflammatory etiology. Discussed use of NSAIDs and ice. Dragon Disclaimer: Dragon Disclaimer: This electronic medical record was generated, in whole or in part, using a voice recognition dictation system. Departure Departure: Impression: Primary Impression: Right upper limb pain Additional Impressions: Insect bites Right lower quadrant abdominal pain Disposition: HOME/RESIDENCE PRIOR TO ADM Condition: STABLE Patient Instructions: Abdominal Pain, Cellulitis, Insect Bite Scripts Doxycycline Hyclate (DOXYCYCLINE HYCLATE) 100 Mg Capsule 1 CAP PO BID for -, #20 CAP Prov: MAIK QUINTANILLA MD 10/01/19 Diclofenac Sodium (DICLOFENAC SODIUM) 50 Mg Tablet. 1 TAB PO BID for pain, #20 TAB 1 Refill Prov: MAIK QUINTANILLA MD 10/01/19 Justification of Admission: Justification of Admission: Justification of Admission Dx: N/A MAIK QUINTANILLA MD Oct 01, 2019 08:26
[2019-10-01] MEDS ORDERED: IOHEXOL 300 MG/ML 75 ML VIAL. IV ONE (08:30)
[2019-10-01 08:54] LABS: BASO # 0.1 x10^3/uL (0.0-0.2); BASO % 1 % (0-3); EOS # 0.2 x10^3/uL (0.0-0.7); EOS % 2 % (0-3); HEMATOCRIT 44.8 % (39.0-53.0); LYMPH # 1.7 x10^3/uL (1.0-4.8); LYMPH % 15 % (24-48); MEAN CORPUSCULAR HEMOGLOBIN 29 pg (25-35); MEAN CORPUSCULAR HGB CONC 33 g/dL (31-37); MEAN CORPUSCULAR VOLUME 86 fL (79-100); MONO # 1.3 x10^3/uL (0.0-1.1); MONO % 11 % (0-9); NEUT # 8.5 x10^3uL (1.8-7.7); NEUT % 72 % (31-73); PLATELET COUNT 377 x10^3/uL (140-400); RED BLOOD COUNT 5.19 x10^6/uL (4.30-5.70); RED CELL DISTRIBUTION WIDTH 14.1 % (11.5-14.5); WHITE BLOOD COUNT 11.8 x10^3/uL (4.0-11.0)
--- NOTE | 2019-10-01 08:58 | RAD ---
PQRS Compliance Statement: One or more of the following individualized dose reduction techniques were utilized for this examination: 1. Automated exposure control 2. Adjustment of the mA and/or kV according to patient size 3. Use of iterative reconstruction technique CT abdomen/pelvis with contrast 10/01/2019 8:20 AM INDICATION: Right lower quadrant abdominal pain COMPARISON: CT abdomen/pelvis 06/16/2017 TECHNIQUE: Multiple axial CT images of the abdomen and pelvis were obtained after the intravenous administration of nonionic contrast. Coronal and sagittal reformats are provided. FINDINGS: Lung bases are clear. Heart size is within normal limits. Mild hypoattenuation of the hepatic parenchyma suggestive of hepatic steatosis. There is an 8 mm hypervascular area within segment VIII (series 2, image 15) which may represent a vascular shunt or flash fill hemangioma in the absence of underlying malignancy. Spleen, bilateral adrenal glands and pancreas are normal in appearance. Gallbladder surgically absent. Abdominal aorta is normal in course and caliber. There are no pathologically enlarged lymph nodes in the abdomen and pelvis. No free fluid or free intraperitoneal air. Small and large bowel are normal in caliber. There is no evidence for bowel obstruction. There are no pericolonic inflammatory changes. A normal, nondilated appendix is visualized without adjacent inflammatory changes. The kidneys enhance symmetrically. There is no suspicious renal mass. There is no hydronephrosis. There are no suspected calculi within the kidneys, ureters or urinary bladder. Urinary bladder is within normal limits given degree of distention. Prostate and seminal vesicles appear normal. No suspicious osseous abnormality is identified. IMPRESSION: 1. No acute abnormality is identified in abdomen and pelvis. Specifically, appendix is normal in appearance. 2. There is a 8 mm hypervascular lesion in segment VIII of the right hepatic lobe. Primary consideration may be given for vascular shunt versus flash fill hemangioma in the absence of underlying malignancy. If there is persistent clinical concern, a nonemergent MRI abdomen with and without contrast could be of benefit. Electronically signed by: Nalini Etienne MD (10/01/2019 8:55 AM) [facility]
[2019-10-01 09:13] LABS: CALCIUM 8.7 mg/dL (8.5-10.1); CREATININE 1.2 mg/dL (0.7-1.3); GFR 65.5; POTASSIUM 3.5 mmol/L (3.5-5.1)
[2019-10-01 09:19] LABS: ALBUMIN 4.1 g/dL (3.4-5.0); ALBUMIN/GLOBULIN RATIO 1.1 (1.0-1.7); C REACTIVE PROTEIN 11.9 mg/L (0-3.3); TOTAL BILIRUBIN 0.7 mg/dL (0.2-1.0)
[2019-10-01] MEDS ORDERED: DICL50TA4 PO (09:38)
[2019-10-01] MEDS ORDERED: DOXY100C2 PO (09:38)
== END 2019-10-01 09:45 | disposition home or self-care (01) ==
LOC: ER 08:02
DX: S60.561A Insect bite (nonvenomous) of right hand, initial encounter (principal); S50.861A Insect bite (nonvenomous) of right forearm, initial encounter; M79.601 Pain in right arm; R10.31 Right lower quadrant pain; I10 Essential (primary) hypertension; Z90.49 Acquired absence of other specified parts of digestive tract; W57.XXXA Bitten or stung by nonvenomous insect and other nonvenomous arthropods, initial encounter; Y93.89 Activity, other specified; Y92.89 Other specified places as the place of occurrence of the external cause; Y99.8 Other external cause status
CPT/HCPCS: 36415; 74177; 80053; 83690; 85025; 86140; 99285; Q9967

== ENCOUNTER 2019-10-01 22:48 | Emergency (ER) | payer SELFPAY ==
[~2019-10-01] VITALS: Ht 167.6 cm; Wt 84.0 kg
[~2019-10-01 22:48] MED LIST changes: +DICL50TA4 PO; +DOXY100C2 PO
[2019-10-01 22:50] VITALS: BP 154/128
--- NOTE | 2019-10-01 22:52 | PHYS DOC ---
Past History Past Medical History: No Pertinent History, Anxiety, Cancer, Fibromyalgia Additional Past Medical Histor: Giives hx of Renal carcinoma Right Past Medical History Cervical neuropathy Past Surgical History: Cholecystectomy Additional Past Surgical Histo: lipoma Smoking: Cigarettes Alcohol Use: Occasionally Drug Use: Marijuana General Adult HPI: HPI: ".. I was here earlier.." I hurt everywhere...all over my body..." ". but my arm .. Rt. one is still hurting.. I can't fill my antibiotics until tomorrow... my hand is swollen.. I got some insect bites in it....and I know I got cervical neuropathy.... "..." I still have pain in my Rt. lower abdomen... after the doctor pushed on my stomach this morning..." Patient is a 44 year old male who presents with above hx and complaints of all over body pain. Patient's primary complaint is right arm and pain seems to radiate from his cervical down his right arm. Patient has known history of cervical neuropathy. Patient also has history of renal cancer and has not followed up. Does have a history of past gallstones hypertension. History of cholecystectomy. Patient primary complaint is same as when he was seen earlier in a.m. Patient does smoke. Patient does use marijuana. No recent travel. No specific ill contacts. Patient denies any trauma. Patient does have findings consistent with cervical neuropathy. There is mild Sarai sign on percussion of median nerve and wrist. Patient denies any history of gout or pseudogout. Patient did receive a CT earlier today which showed a normal appendix. There was a hypervascular region in the area of right hepatic lobe. Patient was earlier discharged on doxycycline 100 mg twice a day and Diflucan 50 mg twice a day for pain. Has not filled either prescription reportedly because of fi nancial noncompliance. Review of Systems: Review of Systems: Constitutional: Denies fever or chills Eyes: Denies change in visual acuity HENT: Denies nasal congestion or sore throat Respiratory: Denies cough or shortness of breath Cardiovascular: Denies chest pain or edema GI: Complains of lower right abdominal pain,. Denies nausea, vomiting, bloody stools . History of chronic diarrhea Musculoskeletal: Complains of all over body pain. Localized pain in right hand and arm. Integument: Denies rash Neurologic: Denies headache, focal weakness or sensory changes Endocrine: Denies polyuria or polydipsia Lymphatic: Denies swollen glands Psychiatric: Denies depression or anxiety Heart Score: Risk Factors: Risk Factors: DM, Current or recent (<one month) smoker, HTN, HLP, family history of CAD, obesity. Risk Scores: Score 0 - 3: 2.5% MACE over next 6 weeks - Discharge Home Score 4 - 6: 20.3% MACE over next 6 weeks - Admit for Clinical Observation Score 7 - 10: 72.7% MACE over next 6 weeks - Early Invasive Strategies Family History: Family History: Noncontributory to presentation Current Medications: Current Meds: See nursing for home meds Allergies: Allergies: Allergies Coded Allergies Type Severity Reaction Last Updated Verified No Known Drug Allergies 06/16/17 No Physical Exam: PE: Constitutional: Reports moderate acute distress, non-toxic appearance. [] HENT: Normocephalic, atraumatic, bilateral external ears normal, oropharynx moist, no oral exudates, nose normal. Multiple dental caries Eyes: PERRLA, EOMI, conjunctiva normal, no discharge. [] Neck: Normal range of motion, no tenderness, supple, no stridor. [] Cardiovascular:Heart rate regular rhythm, no murmur [] Lungs & Thorax: Bilateral breath sounds equal apex with scattered wheezes on auscultation [] Abdomen: Bowel sounds normal, soft, no masses, no pulsatile masses. Old surgery scars. Right lower quadrant tenderness. No psoas sign. Skin: Warm, dry, no erythema, no rash. Insect bites right hand appear inflamed Back: No tenderness, no CVA tenderness. [] Extremities: Right arm tenderness, follows median and radial nerve, no cyanosis, no clubbing, ROM painful and right arm, shoulder and elbow, mild edema right hand. Multiple insect bites. No striations or axillary adenopathy. Capillary refill and sensation is equal to left hand. No cording appreciated. Neurologic: Alert and oriented X 3, normal motor function, normal sensory fun ction, no focal deficits noted. [] Radial nerve and median nerve root tenderness. Mild Tinel sign at wrist in right hand. Psychologic: Affect anxious, judgement normal, mood normal. [] EKG: EKG: [] Radiology/Procedures: Radiology/Procedures: Reviewed CT findings from this morning [] Course & Med Decision Making: Course & Med Decision Making Pertinent Labs and Imaging studies reviewed. (See chart for details) Patient take meds as previously prescribed. Strongly recommended patient follow-up at . Stay on a clear fluid diet if having abdomen pain. No solids or milk products. May take Tylenol for pain in addition to his Diclofenac. Ta ke doxycycline 100 mg twice a day as previously directed. Must follow-up with a dentist. Consider outpatient MRI. Consider colonoscopy to evaluate for inflammatory bowel causes of pain. Advised patient of the small hyper vascular finding on CT and need for follow-up because of his history of renal cell carcinoma. Impression. 1. Right cervical neuropathy 2. Insect bites right hand-possibly early cellulitis 3. History of renal cancer 4. 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 History of chronic pain and fibromyalgia 6. Dental caries [] Dragon Disclaimer: Dragon Disclaimer: This electronic medical record was generated, in whole or in part, using a voice recognition dictation system. Departure Departure: Disposition: 01 HOME/RESIDENCE PRIOR TO ADM Condition: STABLE Referrals: PCP,NO (PCP) Justification of Admission: Justification of Admission: Justification of Admission Dx: N/A Dragon Disclaimer This chart was dictated in whole or in part using Voice Recognition software in a busy, high-work load, and often noisy Emergency Department environment. It may contain unintended and wholly unrecognized errors or omissions. Dragon Disclaimer This chart was dictated in whole or in part using Voice Recognition software in a busy, high-work load, and often noisy Emergency Department environment. It may contain unintended and wholly unrecognized errors or omissions. KHUSHI BOGGS MD Oct 01, 2019 22:52
[2019-10-01 23:50] LABS: CLARITY,URINE CLEAR; COLOR,URINE YELLOW
[2019-10-01 23:51] LABS: BACTERIA,URINE 0 /HPF (0-FEW); BARBITURATES NEG (NEG); BENZODIAZEPINES NEG (NEG); BILIRUBIN,URINE NEG (NEG); CANNABINOIDS NEG (NEG); COCAINE NEG (NEG); GLUCOSE,URINE NEG (NEG); METHADONE NEG (NEG); NITRITE,URINE NEG (NEG); OPIATES NEG (NEG); PHENCYCLIDINE NEG (NEG); RBC,URINE 0 /HPF (0-2); SQUAMOUS EPITHELIAL CELL,UR OCC /LPF; UROBILINOGEN,URINE 0.2 mg/dL (0.2 mg/dL); WBC,URINE OCC /HPF (0-4)
[2019-10-01 23:54] LABS: AMPHETAMINE/METHAMPHETAMINE NEG (NEG)
[2019-10-02] MEDS ORDERED: methylPREDNISolone ACETATE 40 MG/ML VIAL. IM ONE
[2019-10-02] MEDS ORDERED: KETOROLAC 60 MG/2 ML VIAL. IM ONE
[2019-10-02] MEDS ORDERED: ACETAMINOPHEN 500 MG TABLET PO ONE
[2019-10-02] MEDS ORDERED: cefTRIAXone IM 1 GM VIAL IM ONE
[2019-10-02] MEDS ORDERED: DIPH,PERTUSS(ACELL),TET VAC/PF 0.5 ML SYRINGE. VAX IM ONE
== END 2019-10-02 00:45 | disposition home or self-care (01) ==
LOC: ER 22:48
DX: S60.561D Insect bite (nonvenomous) of right hand, subsequent encounter (principal); G54.2 Cervical root disorders, not elsewhere classified; R91.1 Solitary pulmonary nodule; G89.29 Other chronic pain; M79.7 Fibromyalgia; K02.9 Dental caries, unspecified; Z85.528 Personal history of other malignant neoplasm of kidney; F17.210 Nicotine dependence, cigarettes, uncomplicated; Z90.49 Acquired absence of other specified parts of digestive tract; W57.XXXD Bitten or stung by nonvenomous insect and other nonvenomous arthropods, subsequent encounter
CPT/HCPCS: 36415; 80307; 81001; 90471; 90715; 96372; 99284; J0696; J1030; J1885